=== PATIENT | female | born 1965 | race Caucasian/White ===

== ENCOUNTER 2020-05-15 10:42 | Emergency (ER) | payer OTHER ==
[~2020-05-15] VITALS: Ht 162.6 cm; Wt 102.1 kg
[2020-05-15] MEDS ORDERED: PREDNISONE 20 M20 M1 PO (11:35)
[2020-05-15] MEDS ORDERED: AMOXICILLIN 50500 MG PO (11:35)
[2020-05-15 11:39] VITALS: BP 168/102
== END 2020-05-15 11:39 | disposition home or self-care (01) ==
LOC: M.ERS 10:42
DX: J32.1 Chronic frontal sinusitis (principal); J30.9 Allergic rhinitis, unspecified; Z90.710 Acquired absence of both cervix and uterus